=== PATIENT | male | born 1950 | race Caucasian/White ===

== ENCOUNTER 2021-06-06 09:12 | Emergency (ER) | payer MEDICARE, OTHER ==
[~2021-06-06] VITALS: Ht 177.8 cm; Wt 96.4 kg
[2021-06-06 10:07] LABS: BACTERIA,URINE 0 /HPF (0-FEW); BILIRUBIN,URINE NEG (NEG); CLARITY,URINE CLEAR; COLOR,URINE YELLOW; GLUCOSE,URINE NEG (NEG); NITRITE,URINE NEG (NEG); RBC,URINE 0 /HPF (0-2); SQUAMOUS EPITHELIAL CELL,UR OCC /LPF; UROBILINOGEN,URINE 0.2 mg/dL (0.2 mg/dL); WBC,URINE 0 /HPF (0-4)
--- NOTE | 2021-06-06 10:07 | PHYS DOC ---
Past History Additional Past Medical Histor: enlarged prostate, back pain (ELAYNE MENDOSA) Past Surgical History: Other Additional Past Surgical Histo: left shoulder (ELAYNE MENDOSA) Alcohol Use: Occasionally (ELAYNE MENDOSA) General Adult EDM: Chief Complaint: ABDOMINAL PAIN HPI: HPI: Patient is a 70 year old male who presents with lower abdominal pain that began yesterday morning. Patient rates his pain 1/10 that gets worse intermittently and with urination. Patient describes the pain as "bladder pain" and is cramping in nature. Patient reports similar symptoms in the past, at which time he was diagnosed with a prostate infection. He has been increasing his fluid intake and effort to "flush it out," in case he did have a urinary tract infection. Patient denies fever, chills, malodorous urine, urinary urgency, hematuria, anorexia, N/V/D, constipation. (ELAYNE MENDOSA) Review of Systems: Review of Systems: Constitutional: See HPI Respiratory: Denies cough or shortness of breath Cardiovascular: Denies chest pain or edema GI: See HPI : See HPI Musculoskeletal: Denies back pain or joint pain Neurologic: Denies headache, focal weakness or sensory changes (ELAYNE MENDOSA) Allergies: Allergies: Allergies Coded Allergies Type Severity Reaction Last Updated Verified gluten Allergy Unknown 06/06/21 Yes (ELAYNE MENDOSA) Physical Exam: PE: Constitutional: Well developed, well nourished, no acute distress, non-toxic appearance. Cardiovascular: Heart rate regular rhythm, no murmur. Lungs & Thorax: Bilateral breath sounds clear to auscultation. Abdomen: Bowel sounds normal, soft, no tenderness, no masses, no pulsatile masses. Skin: Warm, dry, no erythema, no rash. Back: No stepoffs, no bony tenderness, no paraspinal tenderness, no CVA tenderness. Neurologic: Alert and oriented x4, motor function intact, sensory function intact, no focal deficits noted. Psychologic: Affect appropriate, good judgement, mood "fine." (ELAYNE MENDOSA) Current Patient Data: Vital Signs: Vital Signs Date Time Temp Pulse Resp B/P (MAP) Pulse Ox O2 Delivery O2 Flow Rate FiO2 06/06/21 09:20 98.2 61 18 157/86 (109) 96 Room Air (ELAYNE MENDOSA) Heart Score: C/O Chest Pain: No (ELAYNE MENDOSA) Course & Med Decision Making: Course & Med Decision Making Pertinent Labs and Imaging studies reviewed. (See chart for details) As patient has had similar symptoms in the past, initial work-up will include urinalysis. Pending results, further work-up may be initiated. Department was notified shortly after patient's arrival that the blood chemistry instrumentation would be down for several hours for maintenance. Patient's urine sample does not show sign of infection, so further work-up is indicated. In discussing this with the patient, he would prefer to leave the department so he may go home to work, and come back later when the machines are functional. I discussed with the patient that he does have the option of remaining here while we do further testing. He was also offered the option to visit a different facility who is instrumentation is functional at the moment. He declines, and states that he will come back later on today. Patient is aware that he could have worsening condition, increased pain, suffer permanent disability or . Patient signed out AMA. (ELAYNE MENDOSA) Dragon Disclaimer: Dragon Disclaimer: This electronic medical record was generated, in whole or in part, using a voice recognition dictation system. (ELAYNE MENDOSA) Attending Co-Sign The patient was seen and interviewed as well as examined at the bedside. The chart was reviewed. The case was discussed. Agree with the plan of care. (TEENA NARANJO DO) Departure Departure: Impression: Primary Impression: Left against medical advice Additional Impression: Lower abdominal pain Disposition: 07 LEFT AGAINST MEDICAL ADVICE Condition: GUARDED Referrals: POLINA LOBO (PCP) ELAYNE MENDOSA Jun 06, 2021 10:07 TEENA NARANJO DO Jun 07, 2021 06:39
[2021-06-06 10:20] VITALS: BP 131/69
== END 2021-06-06 10:30 | disposition left against medical advice (07) ==
LOC: ER 09:12
DX: R10.30 Lower abdominal pain, unspecified (principal); Z88.8 Allergy status to other drugs, medicaments and biological substances
CPT/HCPCS: 81001; 99283